=== PATIENT | female | born 1980 | race Caucasian/White ===

== ENCOUNTER 2019-04-08 01:50 | Inpatient (IN) | payer MEDICAID ==
[2019-04-08] MEDS ORDERED: METHYLERGONOVINE 0.2 MG INJ IM (02:30)
[2019-04-08] MEDS ORDERED: MISOPROSTOL 200 MCG TAB PR ×2 (02:30→09:30)
[2019-04-08] MEDS ORDERED: CARBOPROST 250 MCG INJ IM (02:30)
[2019-04-08] MEDS ORDERED: OXYTOCIN 30 UNITS/LR 500 ML IV (02:30)
[2019-04-08] MEDS: LACTATED RINGER'S 1,000 ML IV ×5 (02:54→21:43)
[2019-04-08 03:17] LABS: ADD MAN DIFF? NO
[2019-04-08 03:19] LABS: BASOPHILS % 0.2 % (0.0-2.0); EOSINOPHILS # 0.1 10^3/ul (0.0-0.5); EOSINOPHILS % 0.7 % (0.0-7.0); HEMATOCRIT 37.5 % (37.0-47.0); HEMOGLOBIN 12.7 g/dl (12.0-16.0); LYMPHOCYTES # 1.6 10^3/ul (0.8-2.9); LYMPHOCYTES % 17.9 % (15.0-51.0); MEAN CORPUSCULAR HEMOGLOBIN 32.2 pg (29.0-33.0); MEAN CORPUSCULAR HGB CONC 33.9 g/dl (32.0-37.0); MEAN CORPUSCULAR VOLUME 94.9 fl (82.0-101.0); MONOCYTE # 0.6 10^3/ul (0.3-0.9); MONOCYTES % 6.5 % (0.0-11.0); NEUTROPHIL # 6.6 10^3/ul (1.6-7.5); NEUTROPHILS % 74.1 % (39.0-77.0); PLATELET COUNT 146 10^3/UL (140-415); RED BLOOD COUNT 3.95 10^6/ul (4.20-5.40)
[2019-04-08 03:19] LABS: WHITE BLOOD COUNT 8.9 10^3/ul (4.8-10.8)
[2019-04-08 03:40] LABS: INR 0.82; PARTIAL THROMBOPLASTIN TIME 24.4 Sec (23.0-35.0); PROTIME 11.4 Sec (11.9-14.9); PT RATIO 0.9
[2019-04-08 04:59] LABS: HEPATITIS B SURFACE ANTIGEN NEGATIVE (NEGATIVE)
[2019-04-08] MEDS ORDERED: morphine SULFATE/PF (10 MG/10 ML) INJ (07:57)
[2019-04-08] MEDS ORDERED: ONDANSETRON 4 MG INJ (07:57)
[2019-04-08] MEDS ORDERED: OXYTOCIN 10 UNIT INJ ×2 (07:57→08:30)
[2019-04-08] MEDS ORDERED: FENTAnyl 50 MCG/ML VIAL (08:30)
[2019-04-08] MEDS ORDERED: MIDAZOLAM 1 MG/ML 2 ML INJ (08:31)
[2019-04-08] MEDS ORDERED: morphine 10 MG INJ (08:39)
[2019-04-08] MEDS ORDERED: ONDANSETRON 4 MG INJ IV (09:30)
[2019-04-08] MEDS ORDERED: DIPHENHYDRAMINE 50 MG INJ IV (09:30)
[2019-04-08] MEDS ORDERED: OXYCODONE/ACETAMINOPHEN (5/325) TAB PO ×2 (09:30)
[2019-04-08] MEDS ORDERED: NA PHOSPHATE/BIPHOS 133 ML ENEMA PR (09:30)
[2019-04-08] MEDS ORDERED: NALOXONE (0.4 MG/ML) INJ IV (09:30)
[2019-04-08] MEDS: morphine 2 MG INJ IV (09:31)
[2019-04-08] MEDS: KETOROLAC 30 MG INJ IV (09:51)
[2019-04-08] MEDS: CEFAZOLIN 2 GM/50 ML (PMX) 50 ML IVPB (09:53)
[2019-04-08] MEDS: OXYTOCIN 30 UNITS/LR 500 ML IV (12:50)
[2019-04-08] MEDS: IBUPROFEN 600 MG TAB PO ×2 (15:04→18:00)
[2019-04-08 17:03] LABS: RAPID PLASMA REAGIN NONREACTIVE (NR)
[2019-04-08] MEDS: LANOLIN HPA 1 PKT TOP (18:43)
[2019-04-08] MEDS: SENNA/DOCUSATE NA (8.6MG/50MG) TAB PO (20:42)
[2019-04-09] MEDS: KETOROLAC 30 MG INJ IV (05:29)
[2019-04-09] MEDS: LACTATED RINGER'S 1,000 ML IV ×3 (05:42→18:31)
[2019-04-09] MEDS: IBUPROFEN 600 MG TAB PO ×5 (06:00→23:46)
[2019-04-09 08:59] LABS: ADD MAN DIFF? NO
[2019-04-09 09:10] LABS: BASOPHILS % 0.3 % (0.0-2.0); EOSINOPHILS % 0.3 % (0.0-7.0); LYMPHOCYTES # 1.2 10^3/ul (0.8-2.9); LYMPHOCYTES % 11.8 % (15.0-51.0); MEAN CORPUSCULAR HEMOGLOBIN 32.7 pg (29.0-33.0); MEAN CORPUSCULAR HGB CONC 34.3 g/dl (32.0-37.0); MEAN CORPUSCULAR VOLUME 95.4 fl (82.0-101.0); MEAN PLATELET VOLUME 12.6 fl (7.4-10.4); MONOCYTE # 0.6 10^3/ul (0.3-0.9); MONOCYTES % 6.3 % (0.0-11.0); NEUTROPHILS % 80.9 % (39.0-77.0); PLATELET COUNT 152 10^3/UL (140-415); RED BLOOD COUNT 3.67 10^6/ul (4.20-5.40); RED CELL DISTRIBUTION WIDTH 12.1 % (11.5-14.5)
[2019-04-09 09:10] LABS: WHITE BLOOD COUNT 9.9 10^3/ul (4.8-10.8)
[2019-04-09] MEDS: SENNA/DOCUSATE NA (8.6MG/50MG) TAB PO ×2 (10:20→21:50)
[2019-04-10] MEDS: LACTATED RINGER'S 1,000 ML IV ×2 (03:00→11:00)
[2019-04-10] MEDS: IBUPROFEN 600 MG TAB PO ×2 (05:47→11:17)
[2019-04-10] MEDS: SENNA/DOCUSATE NA (8.6MG/50MG) TAB PO (11:17)
[2019-04-11] MEDS ORDERED: DIPHTH/TET/ACEL PERTUSS (ADULT) 0.5 ML VIAL IM* (09:00)
[2019-04-11] MEDS ORDERED: MEASLES,MUMPS,RUBELLA VACCINE INJ SC* (09:00)
== END 2019-04-10 16:01 | disposition home or self-care (01) | DRG 785 ==
LOC: OBT 01:50 → L-D 01:50 → OBT 02:23 → L-D 02:23 → PP1 14:33
PROVIDERS: Specialist
PROC: 10D00Z1 Extraction of Products of Conception, Low, Open Approach (ICD-10-PCS; principal; 2019-04-08 08:30)
PROC: 0UT70ZZ Resection of Bilateral Fallopian Tubes, Open Approach (ICD-10-PCS; 2019-04-08 08:30)
DX: O65.5 Obstructed labor due to abnormality of maternal pelvic organs (principal); O34.211 Maternal care for low transverse scar from previous cesarean delivery; Z3A.38 38 weeks gestation of pregnancy; Z37.0 Single live birth; Z30.2 Encounter for sterilization
CPT/HCPCS: 85025; 85610; 85730; 86592; 86850; 86900; 86901; 87340; 88302; 99464